=== PATIENT | male | born 2000 | race Two or more races ===

== ENCOUNTER 2019-04-01 15:56 | Emergency (ER) | payer BC, OTHER ==
[2019-04-01 16:42] VITALS: BP 119/66; PULSE 87; RESP 17; TEMP 98.3
[2019-04-01] MEDS ORDERED: KETOROLAC 30 MG/ML 1 ML VIAL IVP STA (17:50)
--- NOTE | 2019-04-01 18:55 | CT ---
EXAMINATION TYPE: CT soft tissue neck w con DATE OF EXAM: 04/01/2019 COMPARISON: None HISTORY: Left side mandible pain. CT DLP: 273.3 mGycm CONTRAST: Patient injected with 100ml mL of Isovue 300. TECHNIQUE: Axial images at 3 mm thick sections. Reconstructed images in the coronal plane and sagitt al plane are reviewed. FINDINGS: Limited CT sections are obtained the lung apices. The lung apices appear clear. Subglottic airway is normal. CT neck: The torus tubarius and fossa of Rosenmuller are normal. Workforce Analyst spaces are normal. Para nasal sinuses and mastoid air cells are clear. Parotid glands appear normal and symmetrical. Submandibular glands, are normal. Parapharyngeal spac es are normal. No suspicious adenopathy is evident. The hypopharynx appears within normal limits. Vocal cord level appear symmetrical. Thyroid as visualized is normal. Osseous structures are normal. IMPRESSIONS: 1. No suspicious abnormality to account for left side mandible pain.
[2019-04-01] MEDS ORDERED: IBUPROFEN 600 MG STARTER PACK 4 TAB BTL PO STA (19:06)
[2019-04-01] MEDS ORDERED: PENICILLIN VK 500MG STARTER 4 TAB BTL PO STA (19:06)
--- NOTE | 2019-04-01 19:08 | ED ---
ENT HPI - General Chief complaint: Dental/Oral Stated complaint: Dental pain Time Seen by Provider: 04/01/19 17:01 Source: patient Mode of arrival: ambulatory Limitations: no limitations - History of Present Illness Initial comments: 19-year-old male patient presents to the emergency department today for evaluation of left-sided oral pain and swelling. Patient states the soft tissue on the left posterior mouth is swollen and painful. Patient states his been bothering him for the last 3 days. States the pain has been worsening. Denies any fever or chills. States it is painful to swallow. Denies any nausea, vomiting, or trismus. Patient states he has not had his wisdom teeth extracted. States he does not have an appointment with dentistry at this time. Denies any chronic medical conditions. Denies any loose or broken teeth. Patient denies any recent rash, shortness breath, chest pain, abdominal pain, diarrhea, constipation, back pain, numbness, tingling, dizziness, weakness, hematuria, dysuria, urinary urgency, urinary frequency, headache, visual changes, or any other complaints. - Related Data Previous Rx's Medication Instructions Recorded Ibuprofen [Motrin] 600 mg PO Q8HR PRN #30 tab 04/01/19 Penicillin V Potassium [Pen Vee K] 500 mg PO Q6H #40 tablet 04/01/19 Allergies Allergy/AdvReac Type Severity Reaction Status Date / Time No Known Allergies Allergy Verified 04/01/19 16:42 Review of Systems ROS Statement: Those systems with pertinent positive or pertinent negative responses have been documented in the HPI. ROS Other: All systems not noted in ROS Statement are negative. Past Medical History Past Medical History: No Reported History History of Any Multi-Drug Resistant Organisms: None Reported Past Surgical History: No Surgical Hx Reported Past Psychological History: No Psychological Hx Reported Smoking Status: Never smoker Past Alcohol Use History: Occasional Past Drug Use History: None Reported General Exam Limitations: no limitations General appearance: alert, in no apparent distress, other (This is a well- developed, well-nourished adult male patient in no acute distress. Vital signs upon presentation are temperature 98.3F, pulse 87, respirations 17, blood pressure 119/66, pulse ox 99% on room air) Eye exam: Present: normal appearance, PERRL, EOMI. Absent: scleral icterus, conjunctival injection, periorbital swelling ENT exam: Present: mucous membranes moist, other (Area near the left palatoglossal fold is erythematous and edematous. Tonsils are symmetric. No broken teeth. No gingival hypertrophy or erythema). Absent: normal exam Neck exam: Present: normal inspection, full ROM. Absent: tenderness, meni ngismus, lymphadenopathy Respiratory exam: Present: normal lung sounds bilaterally. Absent: respiratory distress, wheezes, rales, rhonchi, stridor Cardiovascular Exam: Present: regular rate, normal rhythm, normal heart sounds. Absent: systolic murmur, diastolic murmur, rubs, gallop, clicks Neurological exam: Present: alert, oriented X3, CN II-XII intact Psychiatric exam: Present: normal affect, normal mood Skin exam: Present: warm, dry, intact, normal color. Absent: rash Course Vital Signs 04/01/19 16:39 Temperature 98.3 F Pulse Rate 87 Respiratory 17 Rate Blood Pressure 119/66 O2 Sat by Pulse 99 Oximetry Medical Decision Making - Medical Decision Making 19-year-old male patient presented to the emergency department today for evaluation of pain and swelling to the mouth. Physical examination did reveal swelling to region near the left palatoglossal fold. Oropharynx is patent. Tonsils are symmetric. Patient is afebrile. Vital signs stable. CT of the soft tissue neck was unremarkable. Patient will be treated for intraoral infection with penicillin. He is instructed take Avapro for pain control. He is instructed to follow-up with dentistry for recheck as soon as possible. There is possibility this is related to impacted wisdom teeth. Return parameters were discussed in detail. He verbalizes understanding and agrees with this plan. - Radiology Data Radiology results: report reviewed, image reviewed CT soft tissue neck with contrast was obtained. Report reviewed in its entirety. Impression by Dr. Amado shows no suspicious abnormality 2 complex left sided mandible pain. Disposition Clinical Impression: Dental infection Disposition: HOME SELF-CARE Condition: Good Instructions (If sedation given, give patient instructions): Toothache (ED) Additional Instructions: Complete antibiotic prescription in full. Take pain medication as needed. Follow-up with dentistry as soon as possible. Return to the emergency department immediately for any new, worsening, or concerning symptoms. Prescriptions: Ibuprofen [Motrin] 600 mg PO Q8HR PRN #30 tab PRN Reason: Pain Penicillin V Potassium [Pen Vee K] 500 mg PO Q6H #40 tablet Is patient prescribed a controlled substance at d/c from ED?: No Referrals: None,Stated [Primary Care Provider] - 1-2 days Time of Disposition: 19:07
== END 2019-04-01 19:23 | disposition home or self-care (01) ==
LOC: EC 15:56
DX: K04.7 Periapical abscess without sinus (principal)
CPT/HCPCS: 70491; 99283; 96374; J1885; Q9967